=== PATIENT | female | born 1965 | race Caucasian/White ===

== ENCOUNTER 2018-01-25 00:08 | Emergency (ER) | payer OTHER ==
[~2018-01-25] VITALS: Ht 160 cm; Wt 50.3 kg
[~2018-01-25 00:08] MED LIST: HYDR12.5 PO; METO-356 PO; ZOLP10TA2 PO
[2018-01-25 00:27] VITALS: BP 156/107
[2018-01-26] MEDS ORDERED: HYDR12.5 PO (17:10)
[2018-01-26] MEDS ORDERED: LEVO25TA9 PO (17:10)
== END 2018-01-25 02:04 | disposition home or self-care (01) ==
LOC: ER 00:10
DX: S09.8XXA Other specified injuries of head, initial encounter (principal); F41.9 Anxiety disorder, unspecified; F10.10 Alcohol abuse, uncomplicated; I10 Essential (primary) hypertension; Z85.828 Personal history of other malignant neoplasm of skin; Z90.89 Acquired absence of other organs; W01.198A Fall on same level from slipping, tripping and stumbling with subsequent striking against other object, initial encounter; Y93.89 Activity, other specified; Y92.89 Other specified places as the place of occurrence of the external cause; Y99.8 Other external cause status
CPT/HCPCS: 70450; 99284; A4606; Z7610

== ENCOUNTER 2018-01-26 16:35 | Inpatient (IN) | payer OTHER ==
[~2018-01-26] VITALS: Ht 165.1 cm; Wt 50.8 kg
[2018-01-26] MEDS ORDERED: Folic acid 1 MG/0.2 ML VIAL ONE (16:44)
[2018-01-26] MEDS ORDERED: Thiamine 100 MG/ML VIAL ONE (16:44)
[2018-01-26] MEDS ORDERED: LORAZEPAM INJ 2 MG/ML VIAL ONE (16:45)
[2018-01-26] MEDS ORDERED: FOLIC ACID 1 MG TABLET PO ONE (17:00)
[2018-01-26] MEDS ORDERED: LORAZEPAM INJ 2 MG/ML VIAL IVP ONE (17:00)
[2018-01-26] MEDS ORDERED: THIAMINE HCL 100 MG TABLET PO ONE (17:00)
[2018-01-26] MEDS ORDERED: IV NS 0.9% 1,000 ML BAG IV ONE (17:00)
[2018-01-26 17:01] LABS: BASOPHILS % (AUTO) 0.4 % (0.0-2.0); EOSINOPHILS % (AUTO) 0.2 % (0.0-6.0); HEMATOCRIT 35 % (33-45); HEMOGLOBIN 12.2 g/dL (11.5-14.8); LYMPHOCYTES # (AUTO) 1.2 /CMM (0.8-4.8); LYMPHOCYTES % (AUTO) 30.6 % (20.0-44.0); MEAN CORPUSCULAR HEMOGLOBIN 33 PG (26.0-33.0); MEAN CORPUSCULAR HGB CONC 35 g/dl (31.0-36.0); MEAN CORPUSCULAR VOLUME 97 fL (82-100); MONOCYTES # (AUTO) 0.3 /CMM (0.1-1.30); MONOCYTES % (AUTO) 8.4 % (2.0-12.0); NEUTROPHILS # (AUTO) 2.3 /CMM (1.8-8.9); NEUTROPHILS % (AUTO) 60.4 % (43.0-81.0); PLATELET COUNT (AUTO) 161 /CMM (150-450); RDW COEFFICIENT OF VARIATION 14.5 (11.5-15.0); RED BLOOD CELL COUNT(AUTO) 3.65 MIL/uL (4.0-5.2); WHITE BLOOD COUNT (AUTO) 3.8 K/uL (4.3-11.0)
[2018-01-26] MEDS ORDERED: HYDR12.5 PO (17:10)
[2018-01-26] MEDS ORDERED: LEVO25TA9 PO (17:10)
[2018-01-26 17:36] LABS: CREATININE 0.6 mg/dL (0.6-1.3)
[2018-01-26 17:43] LABS: POTASSIUM 2.8 mmol/L (3.5-5.1)
[2018-01-26] MEDS ORDERED: FOLIC ACID 1 MG TABLET ONE (17:50)
[2018-01-26] MEDS ORDERED: THIAMINE HCL 100 MG TABLET ONE (17:50)
[2018-01-26] MEDS ORDERED: IV D5/0.45 NACL 500 ML IV ONE (18:00)
[2018-01-26] MEDS ORDERED: POTASSIUM CHLORIDE 20 MEQ TAB.PRT.SR PO ONE (18:00)
[2018-01-26] MEDS ORDERED: POTASSIUM CHLORIDE 20 MEQ POWDER PACKET ONE (18:28)
[2018-01-26 20:00] VITALS: BP 148/72
[2018-01-26] MEDS ORDERED: MAGNESIUM HYDROXIDE 30 ML UDC PO PRN (20:00)
[2018-01-26] MEDS ORDERED: ZOLPIDEM TARTRATE 10 MG TABLET PO PRN (20:00)
[2018-01-26] MEDS ORDERED: HYDROCODONE/APAP 5/325MG 1 EACH TABLET PO PRN (20:00)
[2018-01-26] MEDS ORDERED: Z GUARD REMEDY 2 OZ OINT TP PRN (20:00)
[2018-01-26] MEDS ORDERED: ACETAMINOPHEN 325 MG TABLET PO PRN (20:00)
[2018-01-26] MEDS ORDERED: ONDANSETRON HCL/PF 4 MG/2 ML VIAL IVP PRN (20:00)
[2018-01-26] MEDS ORDERED: LORAZEPAM INJ 2 MG/ML VIAL IV PRN (20:00)
[2018-01-26] MEDS: IV NS 0.9% 1,000 ML IV PRN (20:31)
[2018-01-26] MEDS ORDERED: HYDROCODONE/APAP 5/325MG 1 EACH TABLET ONE (20:49)
[2018-01-27] VITALS (10 sets, daily range): BP systolic 145–175; BP diastolic 74–111
[2018-01-27] MEDS: LORAZEPAM INJ 2 MG/ML VIAL IV PRN ×6 (00:32→22:13)
[2018-01-27] MEDS: hydrALAZINE HCL IV 20 MG VIAL IV PRN ×2 (00:32→20:50)
[2018-01-27] MEDS: LEVOTHYROXINE SODIUM 25 MCG TABLET PO SCH (07:57)
[2018-01-27 08:06] LABS: BASOPHILS % (AUTO) 0.1 % (0.0-2.0); EOSINOPHILS % (AUTO) 0.5 % (0.0-6.0); HEMATOCRIT 35 % (33-45); HEMOGLOBIN 12.1 g/dL (11.5-14.8); LYMPHOCYTES # (AUTO) 0.8 /CMM (0.8-4.8); LYMPHOCYTES % (AUTO) 22.6 % (20.0-44.0); MEAN CORPUSCULAR HEMOGLOBIN 33 PG (26.0-33.0); MEAN CORPUSCULAR HGB CONC 34 g/dl (31.0-36.0); MEAN CORPUSCULAR VOLUME 97 fL (82-100); MONOCYTES # (AUTO) 0.4 /CMM (0.1-1.30); MONOCYTES % (AUTO) 12.4 % (2.0-12.0); NEUTROPHILS # (AUTO) 2.3 /CMM (1.8-8.9); NEUTROPHILS % (AUTO) 64.4 % (43.0-81.0); PLATELET COUNT (AUTO) 155 /CMM (150-450); RED BLOOD CELL COUNT(AUTO) 3.65 MIL/uL (4.0-5.2); WHITE BLOOD COUNT (AUTO) 3.6 K/uL (4.3-11.0)
[2018-01-27 08:07] LABS: CALCIUM, SERUM 8.7 mg/dL (8.5-10.1); CREATININE 0.5 mg/dL (0.6-1.3); MAGNESIUM 1.8 mg/dL (1.8-2.4); PHOSPHORUS 2.4 mg/dL (2.5-4.9); POTASSIUM 3.2 mmol/L (3.5-5.1)
[2018-01-27] MEDS: THIAMINE HCL 100 MG TABLET PO SCH (09:08)
[2018-01-27] MEDS: HYDROCHLOROTHIAZIDE 25 MG TABLET PO SCH (09:09)
[2018-01-27] MEDS: FOLIC ACID 1 MG TABLET PO SCH (09:09)
[2018-01-27] MEDS: POTASSIUM CHLORIDE 20 MEQ TAB.PRT.SR PO SCH ×2 (11:36→13:49)
[2018-01-27] MEDS ORDERED: K PHOS NEUTRAL 250 MG TABLET PO ONE (13:30)
[2018-01-27] MEDS ORDERED: POTASSIUM CHLORIDE 20 MEQ TAB.PRT.SR PO SCH (14:00)
[2018-01-27] MEDS: IV NS 0.9% 1,000 ML IV PRN (14:10)
[2018-01-28 00:44] VITALS: BP 164/102
[2018-01-28] MEDS: LORAZEPAM INJ 2 MG/ML VIAL IV PRN ×2 (00:57→22:28)
[2018-01-28 02:20] VITALS: BP 147/94
[2018-01-28] MEDS: IV NS 0.9% 1,000 ML IV PRN ×2 (02:29→16:54)
[2018-01-28] MEDS: THIAMINE HCL 100 MG TABLET PO SCH (07:52)
[2018-01-28] MEDS: FOLIC ACID 1 MG TABLET PO SCH (07:52)
[2018-01-28] MEDS: HYDROCHLOROTHIAZIDE 25 MG TABLET PO SCH (07:55)
[2018-01-28] MEDS: LEVOTHYROXINE SODIUM 25 MCG TABLET PO SCH (07:55)
[2018-01-28 08:00] VITALS: BP 172/100
[2018-01-28 09:02] LABS: CALCIUM, SERUM 8.8 mg/dL (8.5-10.1); CREATININE 0.5 mg/dL (0.6-1.3); POTASSIUM 3.1 mmol/L (3.5-5.1)
[2018-01-28 16:00] VITALS: BP 163/101
[2018-01-28] MEDS ORDERED: POTASSIUM CHLORIDE 20 MEQ TAB.PRT.SR PO SCH (17:00)
[2018-01-28] MEDS ORDERED: hydrALAZINE HCL IV 20 MG VIAL IV PRN (18:30)
[2018-01-28 20:00] VITALS: BP_SYST 166; BP_DIAS 100; BP_DIAS 110
[2018-01-28] MEDS ORDERED: ENALAPRILAT INJ (1.25 MG/ML) 1.25 MG/ML VIAL IV PRN (23:00)
[2018-01-29 05:00] VITALS: BP 151/100
[2018-01-29 07:59] LABS: CALCIUM, SERUM 9.3 mg/dL (8.5-10.1); CREATININE 0.6 mg/dL (0.6-1.3); POTASSIUM 3.1 mmol/L (3.5-5.1)
[2018-01-29 08:00] VITALS: BP 154/104
[2018-01-29] MEDS: LEVOTHYROXINE SODIUM 25 MCG TABLET PO SCH (08:09)
[2018-01-29] MEDS: THIAMINE HCL 100 MG TABLET PO SCH (08:09)
[2018-01-29] MEDS: FOLIC ACID 1 MG TABLET PO SCH (08:09)
[2018-01-29] MEDS: HYDROCHLOROTHIAZIDE 25 MG TABLET PO SCH (08:10)
[2018-01-29] MEDS: POTASSIUM CHLORIDE 20 MEQ TAB.PRT.SR PO SCH ×2 (11:07→12:07)
[2018-01-29 16:00] VITALS: BP 160/105
[2018-01-29] MEDS: LORAZEPAM INJ 2 MG/ML VIAL IV PRN (16:28)
== END 2018-01-29 19:00 | disposition home or self-care (01) | DRG 897 ==
LOC: ER 16:36 → TELE 19:08 → MED 01-27 09:56
PROVIDERS: ADMIT Nurse Practitioner Acute Care; ATTEND Nurse Practitioner Acute Care
DX: F10.239 Alcohol dependence with withdrawal, unspecified (principal); E87.2 Acidosis; G31.2 Degeneration of nervous system due to alcohol; E44.1 Mild protein-calorie malnutrition; G40.89 Other seizures; Z68.1 Body mass index [BMI] 19.9 or less, adult; E83.39 Other disorders of phosphorus metabolism; E83.51 Hypocalcemia; T51.0X1A Toxic effect of ethanol, accidental (unintentional), initial encounter; Y90.1 Blood alcohol level of 20-39 mg/100 ml; E03.9 Hypothyroidism, unspecified; E87.6 Hypokalemia; H81.09 Meniere's disease, unspecified ear; I10 Essential (primary) hypertension; Z85.828 Personal history of other malignant neoplasm of skin; R73.9 Hyperglycemia, unspecified
CPT/HCPCS: 36415; 70450-TC; 80048-TC; 80061-TC; 82962-TC; 83735-TC; 84100-TC; 84439-TC; 84443-TC; 84480; 85025-TC; 87081-TC; A4606; G0480; J0360; J2060; J3411; J3490; J7030; Z7610